=== PATIENT | female | born 1945 | race Caucasian/White ===

== ENCOUNTER 2021-07-26 08:31 | Day surgery (SDC) | payer MEDICARE, OTHER ==
[~2021-07-26] VITALS: Ht 177.8 cm; Wt 82.2 kg
[~2021-07-26 08:31] MED LIST: DOCU100 PO; HYDACE10B PO; IRON325 MG PO; Prilosec Otc20 MG PO; VITAMIN D35000 UNI1 PO; WARF5 PO
== END 2021-07-26 10:53 | disposition home or self-care (01) ==
LOC: ORSCSDS 08:31
PROVIDERS: Surgery
PROC: 0DJD8ZZ Inspection of Lower Intestinal Tract, Via Natural or Artificial Opening Endoscopic (ICD-10-PCS; principal; 2021-07-26 09:45)
DX: Z12.11 Encounter for screening for malignant neoplasm of colon (principal); Z86.010 Personal history of colon polyps; I10 Essential (primary) hypertension; E78.1 Pure hyperglyceridemia; Z79.899 Other long term (current) drug therapy; Z87.891 Personal history of nicotine dependence
CPT/HCPCS: J2704; J7120

== ENCOUNTER 2024-06-10 06:14 | Day surgery (SDC) | payer MEDICARE, OTHER ==
[~2024-06-10] VITALS: Ht 177.8 cm; Wt 71.2 kg
[2024-06-10] MEDS ORDERED: CeFAZolin Sodium 2,000 MG VIAL ONE (06:37)
[2024-06-10] MEDS ORDERED: NS 0 ML IV ONE (06:38)
[2024-06-10] MEDS ORDERED: Lidocaine 1%-Epineph 1:100000 20 ML MDV ONE (06:46)
[2024-06-10] MEDS ORDERED: Dexmedetomidine HCL 200 MCG / 2 ML ONE (07:04)
[2024-06-10] MEDS ORDERED: Lactated Ringer's 1,000 ML IV ONE ×3 (07:05→09:28)
[2024-06-10] MEDS ORDERED: Midazolam HCl 1MG / ML 2ML Vial ONE (07:09)
[2024-06-10] MEDS ORDERED: FentaNYL Citrate 50 MCG/ML 2 ML Injection ONE (07:09)
--- NOTE | 2024-06-10 07:26 | NUR ---
06/10/24 0726 IZA FRANCO T/0 0713 PULSE OX ON 99% VERSED GIVEN 0717 O2 94-96% T/O BLOCK BLOCK STARTED: 718 END BLK: 0721
[2024-06-10] MEDS ORDERED: propofoL 20 ML IV ONE ×2 (07:28→07:47)
--- NOTE | 2024-06-10 07:47 | NUR ---
06/10/24 0747 Patrick Greenberg PLACED IN PRE-OP.
[2024-06-10] MEDS ORDERED: ePHEDrine Sulfate 50 MG/ML 1ML Injection ONE (07:51)
[2024-06-10] MEDS ORDERED: Dexamethasone Sod Phos 10 MG/ML 1ML VIAL ONE (08:14)
[2024-06-10] MEDS ORDERED: Phenylephrine HCl 100 MCG/ML-NS 10MLSYR (1MG/10ML) ONE (08:14)
[2024-06-10] MEDS ORDERED: Ondansetron HCl 2 MG / ML 2ML Vial ONE (08:14)
--- NOTE | 2024-06-10 08:16 | NUR ---
06/10/24 0816 Natalie Castaneda MDA AT BEDSIDE ADMINSTERING ANTIEMETIC. PATIENT DROWSY BUT AROUSABLE TO VERBAL STIMULI. DENIES PAIN OR NAUSEA AT THIS TIME
--- NOTE | 2024-06-10 08:49 | NUR ---
06/10/24 0849 Natalie Castaneda REPORT GIVEN TO LINA TAYLOR
[2024-06-10 10:21] VITALS: BP 105/56
== END 2024-06-10 10:30 | disposition home or self-care (01) ==
LOC: ORSCSDS 06:14
PROVIDERS: Orthopaedic Surgery
PROC: 0PSJ04Z Reposition Left Radius with Internal Fixation Device, Open Approach (ICD-10-PCS; principal; 2024-06-10 07:30)
DX: S52.572A Other intraarticular fracture of lower end of left radius, initial encounter for closed fracture (principal); W10.9XXA Fall (on) (from) unspecified stairs and steps, initial encounter; I10 Essential (primary) hypertension; Z87.891 Personal history of nicotine dependence
CPT/HCPCS: 93005; 93010; C1713; J0690; J1100; J2250; J2371; J2405; J2704; J3010; J7120